=== PATIENT | male | born 1960 | race Two or more races ===

== ENCOUNTER 2021-08-11 20:30 | Emergency (ER) | payer BC ==
[~2021-08-11] VITALS: Ht 170.2 cm; Wt 74.8 kg
--- NOTE | 2021-08-11 20:50 | NUR ---
PT AMBULATED TO ER C/O ABD PAIN NAUSEA AND DIARRHEA SINCE TUESDAY. A/O X4, NO SOB OR LABORED BREATHING, AFEBRILE. DENIES CP/PRESSURE. DR. GREENWOOD AT BEDSIDE, MSE IN PROGRESS.
[2021-08-11] MEDS ORDERED: MORPHINE SULFATE 4 MG/1 ML DISP.SYRIN IV ONE (21:00)
[2021-08-11] MEDS ORDERED: IV NORMAL SALINE 1000 ML BAG IV ONE (21:00)
[2021-08-11] MEDS ORDERED: MORPHINE SULFATE 4 MG/1 ML DISP.SYRIN ONE (21:04)
[2021-08-11] MEDS ORDERED: MORPHINE SULFATE 2 MG/1 ML DISP.SYRIN ONE (21:05)
--- NOTE | 2021-08-11 21:10 | NUR ---
LAB AT BEDSIDE.
[2021-08-11 21:25] LABS: MEAN CORPUSCULAR HEMOGLOBIN 30.9 uug (23.8-33.4); MEAN CORPUSCULAR VOLUME 90.9 fL (73.0-96.2); PLATELET COUNT (AUTO) 239 K/uL (152-348)
[2021-08-11 21:28] LABS: CREATININE 1.4 mg/dL (0.6-1.3); POTASSIUM 3.6 mmol/L (3.5-5.1)
[2021-08-11 21:40] LABS: BILIRUBIN,TOTAL 0.4 mg/dL (0.2-1.0); TOTAL PROTEIN, SERUM 8.4 g/dL (6.4-8.2)
[2021-08-11 21:56] LABS: *BILIRUBIN,URIN NEGATIVE (NEGATIVE); *BLOOD, URINE NEGATIVE (NEGATIVE); *CLARITY,URINE CLEAR (CLEAR); *COLOR,URINE YELLOW (YELLOW); *KETONES,URINE 2+ (NEGATIVE); *UROBILINOGEN,URINE 0.2 E.U./dl (NORMAL); LEUKOCYTE ESTERASE ,URINE NEGATIVE (NEGATIVE); NITRITE, URINE NEGATIVE (NEGATIVE); PH,URINE 7.5 (5.0-8.0); UGLUCOSE NEGATIVE (NEGATIVE)
[2021-08-11] MEDS ORDERED: OMEP40CA21 PO (22:25)
[2021-08-11] MEDS ORDERED: HYDROCODONE/APAP 10-325 MG TABLET ONE (22:56)
[2021-08-11] MEDS ORDERED: HYDROCODONE/APAP 10-325 MG TABLET PO ONE (23:00)
--- NOTE | 2021-08-11 23:03 | NUR ---
Patient discharged to home in stable condition. A/O x4, no N/V/D. Written and verbal after care instructions given. Patient verbalizes understanding of instructions. Stressed follow up or return to ER for worsening s/s. Steady gait, picked up by .
[2021-08-11 23:04] VITALS: BP 156/81
== END 2021-08-11 23:05 | disposition home or self-care (01) ==
LOC: ER 20:33
DX: R10.11 Right upper quadrant pain (principal); R11.2 Nausea with vomiting, unspecified
CPT/HCPCS: 36415; 76705; 80053; 81003; 83690; 85025; 96361; 96374; 99284; J2270 ×2; A4663; J7030